=== PATIENT | male | born 2000 | race Hispanic/Latino ===

== ENCOUNTER 2025-02-03 15:50 | Emergency (ER) | payer SELFPAY ==
[~2025-02-03] VITALS: Ht 177.8 cm; Wt 90.7 kg
[2025-02-03 15:51] VITALS: TEMP 98.1
[2025-02-03 16:13] VITALS: BP 123/66; PULSE 67; RESP 18; O2SAT 99
[2025-02-03] MEDS: LACTATED RINGERS 1000ML 1,000 ML IV ONE (16:13)
--- NOTE | 2025-02-03 16:19 | ERN ---
General Chief Complaint: Allergic Reaction Stated Complaint: ALLERGIC REACTION Time Seen by MD: 15:52 History of Present Illness Initial Comments 24-year-old male who presents for allergic reaction. He was out working and began to have hives through his chest. He reports some tightness in his throat. No stridor. No wheezing. He reports he has had this before but he is unsure with the allergen is. Allergies: Coded Allergies: No Known Allergies (Unverified Allergy, Unknown, 02/03/25) Past Medical History Past Medical History: No Pertinent History Past Surgical History: None ROS Dictation CONSTITUTIONAL: No chills, no fever, no weakness, no diaphoresis, no malaise. HEAD/FACE: No signs of trauma. EENT: No eye pain, no blurred vision, no tearing, no double vision, no ear pain, no ear discharge, no nose pain, no nasal congestion, no throat pain, no throat swelling, no mouth pain. RESPIRATORY: No cough, no orthopnea, no SOB, no stridor, no wheezing. CARDIOVASCULAR: No chest pain, no edema, no palpitations, no syncope. GASTROINTESTINAL/ABDOMINAL: No abdominal pain, no constipation, no diarrhea, no nausea, no vomiting. GENITOURINARY: No abnormal discharge, no dysuria, no frequent urination, no hematuria. No complaints of pain in the genitals. MUSCULOSKELETAL: No back pain, no gout, no joint pain, no joint swelling, no muscle pain, no muscle stiffness, no neck pain. INTEGUMENTARY: Itchiness and hives NEUROLOGICAL/PSYCH: No anxiety, not depressed, no emotional problem, no headache, no numbness, no pre-existing deficit, no history of seizures, no tremors, no weakness. HEMATOLOGIC/LYMPHATIC: Not anemic, no history of blood clots, no apparent bleeding, no bruising, glands not swollen. All Systems Negative, Except as Noted. Physical Exam Physical Exam Dictation VITAL SIGNS: Reviewed. GENERAL APPEARANCE: Alert, oriented x3, no acute distress, obese. HEAD AND FACE: Non-traumatic. EYES: PERRL, pink conjunctivas, eyelid no trauma, anterior chamber clear. EARS: Pinnas intact and no signs of trauma or erythema. Ear canals clear and no discharge. TMs no erythema. NOSE: No discharge, no bleeding. OROPHARYNX: Mouth normal, teeth no caries, tongue pink. Pharynx clear, no erythema. Tonsils no exudates, no abscesses noted. Mucous membrane moist. NECK: Supple, non-tender, no thyromegaly, no masses, no JVD, no bruits. BREAST: Deferred. CHEST: No tenderness, no crepitus, no paradoxical movement, no retractions. LUNGS: Clear, well-ventilated, symmetric, no rales, no wheezing, no rhonchi, no stridor, good breath sounds bilaterally. HEART: Regular rate, regular rhythm, no murmur, no gallops. VASCULAR: No peripheral edema. ABDOMEN: Soft, positive bowel sounds, nondistended, no guarding, nontender, no rebound, no masses no hepatomegaly, no splenomegaly, no Dee's sign, no hernias. RECTAL: Deferred. GENITAL: Deferred. NEUROLOGICAL: Normal speech, gross motor function intact, gross sensory function intact. MUSCULOSKELETAL: Neck nontender, full range of motion, back nontender, full range of motion. EXTREMITIES: Nontender, full range of motion. SKIN: Color pink, dry, no turgor, no rash, no lacerations, no abrasions, no contusions. LYMPHATICS: Deferred. MDM CC: Allergic reaction mm/hives Historian: Patient Comorbidities: None Limitations by social determinants of health: Uninsured Differential diagnosis: Anaphylaxis, hives, allergic reaction, other Vital signs are stable Clinical exam shows hives over the chest otherwise unremarkable No signs of anaphylaxis on clinical exams. No signs respiratory distress or airway compromise. Patient received IV fluids, IV Solu-Medrol, IV Benadryl. Patient was monitored for 1 hour in the ER. No decompensation or dangerous findings. We will DC. ED Course Orders Procedure Category Date Status Time Lactated Ringers PHA 02/03/25 Complete 1000ml (Lactated 16:00 Methylprednisolone PHA 02/03/25 Complete Succ 125mg (Solu-Medr 16:00 Diphenhydramine Hcl PHA 02/03/25 Complete (Benadryl Inj) 16:00 Current Medications Medications (Trade) Dose Ordered Sig/Kody Route PRN Reason Start Time Stop Time Status Last Admin Dose Admin Diphenhydramine HCl (BENAdryl INJ) 50 mg ONCE ONCE IV 02/03/25 16:00 02/03/25 16:01 DC 02/03/25 16:12 Lactated Ringer's 1,000 ml @ 0 mls/hr ONCE ONCE IV 02/03/25 16:00 02/03/25 16:01 DC 02/03/25 16:13 Methylprednisolone Sodium Succinate (Solu-medROL 125MG) 125 mg ONCE ONCE IVP 02/03/25 16:00 02/03/25 16:01 DC 02/03/25 16:12 Vital Signs Date Time Temp Pulse Resp B/P (MAP) Pulse Ox O2 Delivery O2 Flow Rate FiO2 02/03/25 16:13 67 18 123/66 99 Room Air* 0 21 02/03/25 15:51 98.1 75 19 129/66 97 Room Air 0 DX & DISP Disposition: Discharge Departure Impression: Primary Impression: Hives Additional Impression: Allergic reaction Condition: Stable Scripts Cetirizine HCl (Zyrtec) 10 Mg Capsule 1 CAP PO DAILY for allergy symptoms for 5 Days, #5 CAP 0 Refills Prov: JUDY GASTELUM DO 02/03/25 Prednisone (Prednisone) 20 Mg Tablet 1 TAB PO BID for 5 Days, #10 TAB 0 Refills Prov: JUDY GASTELUM DO 02/03/25 Additional Instructions: Your symptoms are most consistent with hives, which has a an allergic reaction. You received IV steroids and IV Benadryl here in the ER. I have prescribed prednisone, which is an anti-inflammatory steroid. Take this twice per day for the next 3-5 days as needed. Once the hives go away you can stop taking this medication. I have also prescribed cetirizine, which helps with the itching. Take this once per day. Please return to the emergency department if you have any concerning symptoms such as severe shortness of breath, neck or mouth swelling, or any other concerning symptom. Referrals: SELF,REFERRAL (PCP) JUDY GASTELUM DO Feb 03, 2025 16:19
[2025-02-03] MEDS ORDERED: PRED20TA3 PO (16:43)
[2025-02-03] MEDS ORDERED: CETI10CA5 PO (16:43)
== END 2025-02-03 17:00 | disposition home or self-care (01) ==
LOC: EDH 15:50
DX: T78.40XA Allergy, unspecified, initial encounter (principal); L50.9 Urticaria, unspecified; Z59.71 Insufficient health insurance coverage; X58.XXXA Exposure to other specified factors, initial encounter
CPT/HCPCS: 99284; 96374; 96361; 96375; J2919; J7120; J1200